=== PATIENT | female | born 1935 | race Caucasian/White ===

== ENCOUNTER → 2016-11-14 | Outpatient (CLI) | payer MEDICARE ==
--- NOTE | 2016-11-15 10:22 | MM ---
Reason for exam: screening (asymptomatic). Last mammogram was performed 1 year and 1 month ago. History: Patient is postmenopausal. Family history of breast cancer in sister and breast cancer in aunt. Benign stereotactic core biopsy of the right breast, February 19, 1999. Core biopsy of the right breast. Excisional biopsy of the left breast. Excisional biopsy of the right breast. Taking estrogen for 36 years 3 months beginning at age 37. Physical Findings: A clinical breast exam by your physician is recommended on an annual basis and results should be correlated with mammographic findings. MG 3D Screening Mammo W/Cad Bilateral CC and MLO view(s) were taken. Prior study comparison: October 26, 2015, bilateral MG 3d screening mammo w/cad. September 29, 2014, bilateral MG screening mammo w CAD. The breast tissue is extremely dense which could obscure a lesion on mammography. Stable benign calcifications. Previous mammotome biopsy in the right breast. There is no discrete abnormality. No significant changes when compared with prior studies. ASSESSMENT: Benign, BI-RAD 2 RECOMMENDATION: Routine screening mammogram of both breasts in 1 year.
== END | disposition home or self-care (01) ==
LOC: RADMAMWWP 13:02
PROVIDERS: ATTEND Internal Medicine
DX: Z12.31 Encounter for screening mammogram for malignant neoplasm of breast (principal)
CPT/HCPCS: 77063; G0202

== ENCOUNTER 2017-08-21 12:49 | Emergency (ER) | payer MEDICARE ==
[~2017-08-21 12:49] MED LIST: HUMAN PROTHROMBIN COMPLX 500 UNIT/16 ML VIAL IV ONE
[2017-08-21] MEDS ORDERED: PROPOFOL 1,000 MG in EMPTY BAG 1 BAG IV ONE (12:50)
[2017-08-21 13:01] VITALS: RESP 16; TEMP 95
--- NOTE | 2017-08-21 13:14 | ED ---
General Adult HPI - General Chief complaint: Allergic Reaction Stated complaint: allergic reaction Time Seen by Provider: 08/21/17 12:50 Source: EMS, RN notes reviewed, old records reviewed Mode of arrival: EMS Limitations: altered mental status - History of Present Illness Initial comments: This is a 79-year-old female the ER for evaluation. Patient is poor strain secondary to clinical condition. Patient is significantly swollen tongue. Patient was elevated and external facility for evaluation of swollen tongue whether was related to hematoma or medication reaction angioedema. Patient has no history of angioedema, takes no RAMÓN inhibitor's - Related Data Home Medications Medication Instructions Recorded Confirmed Atenolol [Tenormin] 25 mg PO DAILY@212904/03/15 08/21/17 LORazepam [Ativan] 0.5 mg PO TID 04/03/15 08/21/17 Rivaroxaban [Xarelto] 20 mg PO DAILY@192904/03/15 08/21/17 Estradiol [Estrace] 1 mg PO DAILY 08/21/17 08/21/17 PARoxetine [Paxil] 10 mg PO DAILY 08/21/17 08/21/17 Allergies Allergy/AdvReac Type Severity Reaction Status Date / Time adhesive tape Allergy raw skin Verified 08/21/17 13:04 egg yolk Allergy Swelling,SO Verified 08/21/17 13:04 B morphine Allergy Vomiting Verified 08/21/17 13:04 sulfamethoxazole Allergy Nausea & Verified 08/21/17 13:04 [From Bactrim] Vomiting trimethoprim [From Bactrim] Allergy Nausea & Verified 08/21/17 13:04 Vomiting Review of Systems ROS Statement: Those systems with pertinent positive or pertinent negative responses have been documented in the HPI. ROS Other: All systems not noted in ROS Statement are negative. Past Medical History Past Medical History: CVA/TIA, Hyperlipidemia, Hypertension, Osteoarthritis (OA) Additional Past Medical History / Comment(s): hx migraines, TIA x 3, arrythmia, varicose veins, sinus problems, LEFT cataract, hx "stomach bacteria" History of Any Multi-Drug Resistant Organisms: None Reported Past Surgical History: Appendectomy, Heart Catheterization, Hysterectomy, Tonsillectomy Additional Past Surgical History / Comment(s): D&C x2, breast biopsies, RT CATARACT 04/07/15 Past Anesthesia/Blood Transfusion Reactions: Motion Sickness, Postoperative Nausea & Vomiting (PONV) Additional Past Anesthesia/Blood Transfusion Reaction / Comment(s): severe PONV- dizziness, diff coming out of anesthesia. wants as little as possible Past Psychological History: Anxiety Smoking Status: Current every day smoker Past Alcohol Use History: None Reported Past Drug Use History: None Reported - Past Family History Brother(s) Family Medical History: Cancer Sister(s) Family Medical History: Deep Vein Thrombosis (DVT) General Exam Limitations: altered mental status General appearance: alert, in no apparent distress Head exam: Present: atraumatic, normocephalic, normal inspection Eye exam: Present: normal appearance, PERRL, EOMI. Absent: scleral icterus, conjunctival injection, periorbital swelling ENT exam: Present: normal exam, mucous membranes moist Neck exam: Present: normal inspection. Absent: tenderness, meningismus, lymphadenopathy Respiratory exam: Present: normal lung sounds bilaterally. Absent: respiratory distress, wheezes, rales, rhonchi, stridor Cardiovascular Exam: Present: regular rate, normal rhythm, normal heart sounds. Absent: systolic murmur, diastolic murmur, rubs, gallop, clicks GI/Abdominal exam: Present: soft, normal bowel sounds. Absent: distended, tenderness, guarding, rebound, rigid Extremities exam: Present: normal inspection, full ROM, normal capillary refill. Absent: tenderness, pedal edema, joint swelling, calf tenderness Back exam: Present: normal inspection Neurological exam: Present: alert, oriented X3, CN II-XII intact Psychiatric exam: Present: normal affect, normal mood Skin exam: Present: warm, dry, intact, normal color. Absent: rash Course Vital Signs 08/21/17 12:51 Temperature 95.0 F L Pulse Rate 77 Respiratory 16 Rate Blood Pressure 127/60 O2 Sat by Pulse 96 Oximetry - Reevaluation(s) Reevaluation #1: 08/21/17 13:43 Medical record and transferring paperwork is thoroughly reviewed EKG Findings - EKG Comments: EKG Findings:: EKG shows sinus rhythm rate of 76, para 280, QRS 90, QTc 452 Medical Decision Making - Medical Decision Making 79 female the ER for evaluation of ALLERGIC reaction versus angioedema. Possibly versus cutting tongue bleeding and hematoma. Patient was intubated for airway protection, will be admitted to the ICU, consult of ENT - Lab Data Lab Results 07/16/18 Range/Units 13:21 Sample Site rrad ABG pH 7.30 L (7.35-7.45) ABG pCO2 45 (35-45) mmHg ABG pO2 74 L (83-108) mmHg ABG HCO3 22 (21-25) mmol/L ABG Total CO2 23 (19-24) mmol/L ABG O2 Saturation 94.0 (94-97) % ABG Base Excess -4.6 mmol/L Amando Test Yes FiO2 30 % Disposition Clinical Impression: Angioedema, Allergic reaction, Hematoma Disposition: ADMITTED IP TO THIS HOSP Condition: Serious Is patient prescribed a controlled substance at d/c from ED?: No Referrals: Charlotte Randolph MD [Primary Care Provider] - 1-2 days
[2017-08-21 13:26] LABS: ABG Base Excess -4.6 mmol/L; ABG HCO3 22 mmol/L (21-25); ABG PCO2 45 mmHg (35-45); ABG PO2 74 mmHg (83-108); ABG TCO2 23 mmol/L (19-24)
[2017-08-21] MEDS ORDERED: IPRATROPIUM-ALBUTEROL 3 ML NEB INHALATION PRN (13:27)
[2017-08-21] MEDS ORDERED: NALOXONE 0.4 MG/ML 1 ML VIAL IV PRN (13:27)
[2017-08-21] MEDS ORDERED: MORPHINE SULFATE 4 MG/ML SYRINGE IV PRN (13:27)
[2017-08-21] MEDS ORDERED: DEXAMETHASONE SOD PHOSPHATE 4 MG/ML 1 ML VIAL IV PRN (13:29)
[2017-08-21] MEDS ORDERED: EPINEPHrine 1 MG/ML 1 ML AMP SQ PRN (13:29)
[2017-08-21] MEDS ORDERED: DEXAMETHASONE SOD PHOSPHATE 10 MG/ML 1 ML VIAL IV STA (13:29)
[2017-08-21] MEDS ORDERED: diphenhydrAMINE 50 MG/ML 1 ML VIAL IVP PRN (13:29)
--- NOTE | 2017-08-21 14:44 | CT ---
EXAMINATION TYPE: CT soft tissue neck wo con DATE OF EXAM: 08/21/2017 COMPARISON: None HISTORY: 81-year-old female with pain Patient currently on blood thinner, Denture got stuck on frenul um and tongue began to swell. Continued bleeding from mouth TECHNIQUE: Contiguous axial scanning of the soft tissues of the neck without IV contrast. Coronal and sagittal reconstructions performed. CT DLP: 347.2 mGycm Automated exposure control for dose reduction was used. FINDINGS: Moderate atherosclerotic calcifications at the aortic arch. To moderate emphysema in the visualized u pper lungs. ET tube is satisfactory. Thyroid gland is atrophic. There is a large sublingual/floor of the mouth hematoma measuring 4.0 cm wide by 5.5 cm AP by 3.5 cm caudal. There is strandy density tracking along the fat planes of the upper neck. There is a retained density/foreign body measuring 5 mm interposed between the undersurface of the to ngue and the hematoma. This has mass effect shifting the tongue superiorly and the floor of the mouth musculature inferiorly. The oropharynx is effaced and not for the ET tube, the airway would likely b e compromised. Visualized intracranial structures are gross abnormality. The globes are intact. Mastoid air cells ar e clear. Scattered [id number] mucosal thickening within the ethmoid air cells. IMPRESSION: 1. LARGE SUBLINGUAL/FLOOR OF THE MOUTH HEMATOMA MEASURING 5.5 X 4.0 CM EFFACING THE ORAL CAVITY AND O ROPHARYNX. 2. IF NOT FOR THE ET TUBE, THE AIRWAY WOULD BE COMPROMISED. 3. A 5 MM RADIODENSITY INTERPOSED BETWEEN THE UNDERSURFACE OF THE TONGUE AND HEMATOMA COULD REPRESENT A SMALL RETAINED DENTURE FRAGMENT (PER THE PATIENT'S HISTORY) OR OTHER FOREIGN BODY.
[2017-08-21] MEDS ORDERED: Kcentra PER PHARMACY 1 EACH MISC MISCELLANE PRN (15:00)
[2017-08-21] MEDS ORDERED: HUMAN PROTHROMBIN COMPLX IV ONE (15:30)
[2017-08-21 16:31] VITALS: PULSE 52
--- NOTE | 2017-08-21 16:55 | HP ---
HISTORY AND PHYSICAL COMBINATION HISTORY AND PHYSICAL AND DISCHARGE SUMMARY: DATE OF SERVICE: 08/21/2017 CHIEF COMPLAINTS: Respiratory arrest and tongue swelling. HISTORY OF PRESENT ILLNESS: This 81-year-old woman with a past medical history of multiple medical problems was admitted with tongue swelling and angioedema. Patient is on Xarelto. The patient was seen by [facility] and referred to [facility]. The patient was nasally intubated. The patient was transferred directly from ER elsewhere for further evaluation and treatment. Prognosis guarded. Please refer to ER notes for detailed information. MMODL / IJN: [id number] /
[2017-08-21 17:19] VITALS: BP 111/56
[2017-08-21] MEDS ORDERED: FAMOTIDINE 20 MG/2 ML VIAL IV SCH (21:00)
[2017-08-22] MEDS ORDERED: PANTOPRAZOLE 40 MG/10 ML VIAL IV SCH (09:00)
== END 2017-08-21 17:53 | disposition other institution (70) ==
LOC: EC 12:49 → 6ICU 13:45 → UNDOADMIN 13:45 → EC 17:53
DX: S00.532A Contusion of oral cavity, initial encounter (principal); T78.3XXA Angioneurotic edema, initial encounter; I10 Essential (primary) hypertension; F41.9 Anxiety disorder, unspecified; F17.200 Nicotine dependence, unspecified, uncomplicated; Z86.73 Personal history of transient ischemic attack (TIA), and cerebral infarction without residual deficits; Z79.01 Long term (current) use of anticoagulants; Z79.899 Other long term (current) drug therapy; Z79.3 Long term (current) use of hormonal contraceptives; Z88.5 Allergy status to narcotic agent; Z88.2 Allergy status to sulfonamides; Z91.012 Allergy to eggs; Z91.048 Other nonmedicinal substance allergy status; Z95.818 Presence of other cardiac implants and grafts; Z53.8 Procedure and treatment not carried out for other reasons
CPT/HCPCS: 94002; 93005; 82805; 70490; 99285; 96365; 96367; J2704; C9132